=== PATIENT | male | born 1975 | race Caucasian/White ===

== ENCOUNTER 2017-08-25 08:52 | Emergency (ER) | payer OTHER ==
[~2017-08-25] VITALS: Ht 190.5 cm; Wt 140.6 kg
[~2017-08-25 08:52] MED LIST: BACTRIM DS 8001 TA1 PO; KEFLEX 500MG.500 MG PO; NOMEDS
--- OUTSIDE RECORDS SUMMARY | 2017-08-25 09:00 | External Medical Summary Rpt | CCD ---
Author Author , JENA BELLA Address Unknown Phone [email or web address] Purpose Continuity of Care Document - through 2016 Problems Code Diagnosis DOS Provider Status L03.90 CELLULITIS, UNSPECIFIED
--- OUTSIDE RECORDS SUMMARY | 2017-08-25 09:00 | External Medical Summary Rpt | CCD ---
Author Author , JENA BELLA Address Unknown Phone [email or web address] Purpose Continuity of Care Document - through 2016 Problems Code Diagnosis DOS Provider Status L03.90 CELLULITIS, UNSPECIFIED
--- OUTSIDE RECORDS SUMMARY | 2017-08-25 09:01 | External Medical Summary Rpt | CCD ---
Author Author [employer] Organization [employer] Address Unknown Phone Unavailable Purpose Continuity of Care Document - through 2016
--- OUTSIDE RECORDS SUMMARY | 2017-08-25 09:01 | External Medical Summary Rpt | CCD ---
Demographics Preferred Language Portuguese Marital Status Unknown Congregational Affiliation Unknown Race Unknown Ethnic Group Unknown Author Author , JENA Organization JENA Address Unknown Phone [email or web address] Immunization Name Date Rout CVX Reac Dose Comm Prov Is Faci e tion ent ider Refu lity Give sed n Td 03-0 9 999 Hist H149 No H149 (gilmar 6-19 ori lt), 97 al Info adso rmat rbed ion - Sour ce Unsp ecif ied
--- OUTSIDE RECORDS SUMMARY | 2017-08-25 09:01 | External Medical Summary Rpt | CCD ---
Demographics Preferred Language [place] Marital Status Unknown Zoroastrianism Affiliation Unknown Race Unknown Ethnic Group Unknown Author Author , JENA Organization JENA Address Unknown Phone [email or web address] Immunization Name Date Rout CVX Reac Dose Comm Prov Is Faci e tion ent ider Refu lity Give sed n Td 03-0 9 999 Hist H149 No H149 (gilmar 6-19 ori lt), 97 al Info adso rmat rbed ion - Sour ce Unsp ecif ied
--- NOTE | 2017-08-25 09:32 | Urgent Treatment Center Report ---
History of Present Issue Date/Time Seen by Provider 08/25/17 0910 Visit Reason Pt arrived:Walked Presenting Problem:PT REPORTS PAIN ACROSS LOWER ABD THAT IS SHARP STABBING IN NATURE BUT HAS CONSTANT "SORENESS" FEELING X2 DAYS, PT ALSO REPORTS FEVER. Location if Accident: Onset of symptoms date/time:08/23/17/ or onset unknown for:MEDICAL HX UNKNOWN Have you (or family members/close friends) recently traveled outside the [place]? N If Yes, where/when: Have you had exposure to infectious disease within the past month? TB? Other? Specify: c/o abdominal pain since Monday Evening. Started sharp, intermittent initially but since Monday morning, remains sharp but now constant. No increase in intensity since Monday. Fever 100-101 since Monday however, woke Monday w/ "a cold" similiar to and kids so isn't sure if fever related to abdomen or not. No one else at home w/ GI symptoms. Denies N/V/D. Normal appetite. No change in pain w/ eating. Denies change stool. No urinary symptoms. Ibuprofen "eases" the pain. Pain currently 7-05/11. Hx of diverticulosis. Called PCP but no available appt until Monday early afternoon. Source patient Exam Limitations no limitations ALLERGIES Coded Allergies: No Known Allergies (05/07/16) Home Medications Active Scripts CEPHALEXIN (Keflex 500MG Capsule) 500 MG PO Q8H #30 CAP Prov: 05/07/16 Reported Medications SULFAMETHOXAZOLE W/TRIMETHOPRI (Bactrim Ds Tab) 1 TAB PO BID History Medical History General CAD? No Angina: No [place]: No Hypertension? No Hyperlipidemia? No CHF? No DVT? No PE? No COPD? No Asthma? No Anemia? No GERD? No Gastric ulcers? No GI Bleed? No Hernia? No Thyroid Problems? No Hypothyroidism? No CVA? No Seizures? No Diabetes? No Renal Insuffiency? No UTI? No Stones? No BPH? No GB Disease: No Nephritic Syndrome? No Asplenia? No Hepatitis? No Sickle Cell Disease? No Arthritis? No Migraines? No Cataracts? No Glaucoma? No MRSA? No HIV? No TB? No Anxiety? No Depression? No Cancer? No More? No Immunization HX DT/Tetanus Unknown Surgical Hx Previous Surgery?Y FOOT SURGERY Social History Smoking Hx Smoker: Never Smoker Tobacco: No Alcohol Alcohol: No Review of Systems All Other Systems Reviewed and Negative Constitutional see HPI, denies chills, denies diaphoresis Eyes denies drainage ENT see HPI, nose discharge, nose congestion. denies: ear pain, throat pain. Respiratory denies cough, denies shortness of breath Cardiovascular denies chest pain Gastrointestinal see HPI Genitourinary see HPI. denies: discharge, dysuria, frequency, hesitancy, hematuria. Musculoskeletal denies back pain Skin denies rash Psychiatric/Neurological denies headache Physical Exam Vital Signs Vital Signs Date Time Temp Pulse Resp B/P Pulse O2 O2 Flow FiO2 Ox Delivery Rate 08/25 0920 99.1 87 18 135/83 98 General Appearance normal appearance, no apparent distress Eye Exam - bilateral eye normal exam Ear, Nose, Throat normal ENT inspection (x/ mild nasal congestion) Neck non-tender, supple Respiratory Status No: respiratory distress, productive cough, non productive cough. Lung Sounds anterior: lungs clear. posterior: lungs clear. bilateral: lungs clear. Cardiovascular regular rate/rhythm, no peripheral edema, no murmur Gastrointestinal soft, no organomegaly, no pulsatile mass, abnormal bowel sounds (hypoactive), no guarding, no rebound, tenderness (hilario lower quadrants) Back no CVA tenderness Neurologic alert, oriented x 3 Skin normal color, warm/dry Medical Decision Making LABS/Meds/Orders Pt receiving controlled substance in ED? No Progress [facility] Progress Notes Date 08/25/17 Time 09 Comment Discussed possible differentials with patient, [facility] guidelines and further workup necessary. Pt agreeable to transfer to ER. 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 Pt assisted to ER room 10 by Fide. Departure Departure Time of Disposition 917 Disposition Still a Patient Clinical Impression Primary Impression: Abdominal pain, bilateral lower quadrant Condition STABLE at 0931
--- NOTE | 2017-08-25 09:32 | Urgent Treatment Center Report ---
History of Present Issue Date/Time Seen by Provider 08/25/17 0910 Visit Reason Pt arrived:Walked Presenting Problem:PT REPORTS PAIN ACROSS LOWER ABD THAT IS SHARP STABBING IN NATURE BUT HAS CONSTANT "SORENESS" FEELING X2 DAYS, PT ALSO REPORTS FEVER. Location if Accident: Onset of symptoms date/time:08/23/17/ or onset unknown for:MEDICAL HX UNKNOWN Have you (or family members/close friends) recently traveled outside the [place]? N If Yes, where/when: Have you had exposure to infectious disease within the past month? TB? Other? Specify: c/o abdominal pain since Monday Evening. Started sharp, intermittent initially but since Monday morning, remains sharp but now constant. No increase in intensity since Monday. Fever 100-101 since Monday however, woke Monday w/ "a cold" similiar to and kids so isn't sure if fever related to abdomen or not. No one else at home w/ GI symptoms. Denies N/V/D. Normal appetite. No change in pain w/ eating. Denies change stool. No urinary symptoms. Ibuprofen "eases" the pain. Pain currently 7-05/11. Hx of diverticulosis. Called PCP but no available appt until Monday early afternoon. Source patient Exam Limitations no limitations ALLERGIES Coded Allergies: No Known Allergies (05/07/16) Home Medications Active Scripts CEPHALEXIN (Keflex 500MG Capsule) 500 MG PO Q8H #30 CAP Prov: 05/07/16 Reported Medications SULFAMETHOXAZOLE W/TRIMETHOPRI (Bactrim Ds Tab) 1 TAB PO BID History Medical History General CAD? No Angina: No [place]: No Hypertension? No Hyperlipidemia? No CHF? No DVT? No PE? No COPD? No Asthma? No Anemia? No GERD? No Gastric ulcers? No GI Bleed? No Hernia? No Thyroid Problems? No Hypothyroidism? No CVA? No Seizures? No Diabetes? No Renal Insuffiency? No UTI? No Stones? No BPH? No GB Disease: No Nephritic Syndrome? No Asplenia? No Hepatitis? No Sickle Cell Disease? No Arthritis? No Migraines? No Cataracts? No Glaucoma? No MRSA? No HIV? No TB? No Anxiety? No Depression? No Cancer? No More? No Immunization HX DT/Tetanus Unknown Surgical Hx Previous Surgery?Y FOOT SURGERY Social History Smoking Hx Smoker: Never Smoker Tobacco: No Alcohol Alcohol: No Review of Systems All Other Systems Reviewed and Negative Constitutional see HPI, denies chills, denies diaphoresis Eyes denies drainage ENT see HPI, nose discharge, nose congestion. denies: ear pain, throat pain. Respiratory denies cough, denies shortness of breath Cardiovascular denies chest pain Gastrointestinal see HPI Genitourinary see HPI. denies: discharge, dysuria, frequency, hesitancy, hematuria. Musculoskeletal denies back pain Skin denies rash Psychiatric/Neurological denies headache Physical Exam Vital Signs Vital Signs Date Time Temp Pulse Resp B/P Pulse O2 O2 Flow FiO2 Ox Delivery Rate 08/25 0920 99.1 87 18 135/83 98 General Appearance normal appearance, no apparent distress Eye Exam - bilateral eye normal exam Ear, Nose, Throat normal ENT inspection (x/ mild nasal congestion) Neck non-tender, supple Respiratory Status No: respiratory distress, productive cough, non productive cough. Lung Sounds anterior: lungs clear. posterior: lungs clear. bilateral: lungs clear. Cardiovascular regular rate/rhythm, no peripheral edema, no murmur Gastrointestinal soft, no organomegaly, no pulsatile mass, abnormal bowel sounds (hypoactive), no guarding, no rebound, tenderness (hilario lower quadrants) Back no CVA tenderness Neurologic alert, oriented x 3 Skin normal color, warm/dry Medical Decision Making LABS/Meds/Orders Pt receiving controlled substance in ED? No Progress [facility] Progress Notes Date 08/25/17 Time 09 Comment Discussed possible differentials with patient, [facility] guidelines and further workup necessary. Pt agreeable to transfer to ER. Report given to Daniella, VACUUM EXTRACTOR OPERATOR. Pt assisted to ER room 10 by Fide. Departure Departure Time of Disposition 917 Disposition Still a Patient Clinical Impression Primary Impression: Abdominal pain, bilateral lower quadrant Condition STABLE at 0931
--- NOTE | 2017-08-25 09:39 | Emergency Room Report ---
See Addendum History of Present Illness Time Seen by MD Hayes Presenting Problem in Triage Pt arrived:Walked Presenting Problem:PT REPORTS PAIN ACROSS LOWER ABD THAT IS SHARP STABBING IN NATURE BUT HAS CONSTANT "SORENESS" FEELING X2 DAYS, PT ALSO REPORTS FEVER. 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 Y Clinical Suspician of Infection? N Mental Status: 1 - Regular (Normal Baseline) Sepsis Risk:Low Sepsis Risk Have you (or family members/close friends) recently traveled outside the [place]? N If Yes, where/when: Have you had exposure to infectious disease within the past month? TB? Other? Specify: She complains of bilateral lower quadrant abdominal pain he states it hurts worse RIGHT in the center denies any f chills or nausea or vomiting or diarrhea, has had feverishness does have history of diverticulitis in the past. no Radiation of pain to the back. Moderate in severity he rates his soreness type feeling and sometimes sharp. Comment 1038 radiologist has called back with diverticulitis, no abscess no perforation. labs pending. invanz ordered. ALLERGIES Coded Allergies: No Known Allergies (05/07/16) History Medical History General CAD? No Angina: No NV: No Hypertension? No Hyperlipidemia? No CHF? No DVT? No PE? No COPD? No Asthma? No Anemia? No GERD? No Gastric ulcers? No GI Bleed? No Hernia? No Thyroid Problems? No Hypothyroidism? No CVA? No Seizures? No Diabetes? No Renal Insuffiency? No End Stage Renal Disease? No UTI? No Stones? No BPH? No GB Disease: No Nephritic Syndrome? No Asplenia? No Hepatitis? No Sickle Cell Disease? No Arthritis? No Migraines? No Cataracts? No Glaucoma? No MRSA? No HIV? No TB? No Anxiety? No Depression? No Cancer? No More? Yes Additional hx: HX OF DIVERTICULOSIS Immunization Hx DT/Tetanus Unknown Surgical Hx Previous Surgery?Y FOOT SURGERY Social History Smoking Hx Smoker: Never Smoker Tobacco: No Alcohol Alcohol: No Review of Systems All Other Systems Reviewed and Negative Physical Exam Vital Signs Vital Signs Date Time Temp Pulse Resp B/P Pulse O2 O2 Flow FiO2 Ox Delivery Rate 08/25 1030 85 16 126/88 100 08/25 1029 16 08/25 0920 99.1 87 18 135/83 98 General Appearance: Nontoxic Head: Normocephalic, without obvious abnormality, atraumatic. Eyes: conjunctiva/corneas clear ENT: Mucous membranes moist. Neck: No jugular venous distention. Cardiac: regular rate and rhythm Lungs: Clear to auscultation bilaterally Abdomen: Patient with bilateral lower quadrant tenderness, Nondistended, positive bowel sounds, no rebound : No CVA tenderness Extremities: no edema Musculoskeletal: No chest wall tenderness Skin: No rashes or lesions to exposed skin. Neurologic: Alert. No gross focal deficits Psychiatric: Normal affect (Venus DEAL, [place]) General Appearance normal appearance Respiratory Status No: respiratory distress. Cardiovascular normal exam Neurologic alert Medical Decision Making LABS/Meds/Orders Pt receiving controlled substance in ED? Yes Results/Orders Laboratory Tests 08/25/17 0940: Sodium 144, Potassium 4.2, Chloride 109 H, Carbon Dioxide 27, BUN 11, Creatinine 0.9, Estimated Creat Clear 215 H, Estimated GFR (MDRD) 93, Glucose 100, Calcium 8.7, Total Bilirubin 0.5, AST 13 L, ALT 27, Alkaline Phosphatase 59, Total Protein 7.2, Albumin 3.4, Globulin 3.8 H, Albumin/Globulin Ratio 0.9 L, Amylase 32, Lipase 67 L, WBC 13.9 H, RBC 4.83, Hgb 14.1, Hct 42.5, MCV 88.1 , RDW 12.6, Plt Count 241, MPV 8.1, Gran % 72.0, Gran # 10.0 H, Lymphocytes % 18.7, Monocytes % 6.8, Eosinophils % 1.9, Basophils % 0.5, Lymphocytes # 2.6, Monocytes # 1.0, Eosinophils # 0.3, Basophils # 0.1, PUBS MCHC 33.1, MCH 29.1 Current Medication Orders Sig/Jeanine Start time Last Medication Dose Route Stop Time Status Admin Ertapenem 0 .STK-MED ONE 08/25 1033 DC .ROUTE Sodium Chloride 50 ML .STK-MED ONE 08/25 1033 DC IV Ertapenem 1 GM ONCE ONE 08/25 1030 DC 08/25 Sodium Chloride 50 ML IV 08/25 1059 1035 Ketorolac 15 MG ONCE ONE 08/25 1030 DC 08/25 Tromethamine IV 08/25 1031 1029 Ketorolac 0 .STK-MED ONE 08/25 1022 DC Tromethamine .ROUTE Ondansetron HCl 0 .STK-MED ONE 08/25 1017 DC .ROUTE Sodium Chloride 1,000 ML .STK-MED ONE 08/25 1017 DC IV Morphine Sulfate 4 MG ONCE ONE 08/25 0945 CAN IV 08/25 0946 Ondansetron HCl 4 MG ONCE ONE 08/25 0945 DC 08/25 IV 08/25 0946 1017 Sodium Chloride 1,000 ML .Q1H 08/25 0945 DC 08/25 IV 08/25 1131 1017 Sodium Chloride 10 ML PRN PRN 08/25 945 AC IV 08/26 0931 Sodium Chloride 10 ML PRN PRN 08/25 0945 AC IV 08/26 0931 Orders Procedure Date/time Status DIET-NOTHING BY MOUTH 08/[address] ABD REQUEST 08/25 09 Complete IV SALINE LOCK 08/25 934 Active URINALYSIS/COMPLETE 08/25 0934 Active LIPASE 08/25 0934 Complete COMPLETE METABOLIC PANEL 08/25 0934 Complete CBC WITH AUTO DIFF 08/25 934 Complete AMYLASE 08/25 0934 Complete Departure Departure Disposition Still a Patient Clinical Impression Primary Impression: Diverticulitis Condition STABLE Referrals Geraldo Hercules MD (Family) Patient Instructions DI for Diverticulitis Additional Instructions clear liquid diet for 48 hours. return if pain worsens or any problems. follow up with your doctor for recheck. Discharge Counseling Counseled pt/family regarding diagnosis, test results, medications/RX, home care, follow up needs Prescriptions Current Visit Scripts Metronidazole (Flagyl) 500 MG PO TID #30 TAB Ondansetron (Zofran 4MG Odt) 4 MG PO Q6HP PRN NAUSEA AND VOMITING #10 ODT Tramadol Hcl (Ultram 50MG) 50 MG PO TID #15 TAB Levofloxacin (Levaquin 750mg) 750 MG PO DAILY #10 TAB ED Critical Care Critical Care No Comments [id number] Charlie check number. at 1100
[2017-08-25 09:52] LABS: HEMOGLOBIN 14.1 g/dL (14.1-18.0); LYMPH # 2.6 K/mm3 (0.7-4.5); LYMPH % 18.7 % (10-50)
[2017-08-25] MEDS ORDERED: LEVAQUIN 750 M750 MG PO (10:38)
[2017-08-25] MEDS ORDERED: ULTRAM50 MG PO (10:38)
[2017-08-25] MEDS ORDERED: FLAGYL500 M1 PO (10:38)
[2017-08-25] MEDS ORDERED: ZOFRAN ODT4 MG PO (10:38)
--- NOTE | 2017-08-25 10:39 | RADIOLOGY REPORT PS360 ---
CT ABD PELVIS W/O CONTRAST COMPARISON: CT scan abdomen pelvis 08/15/2012 HISTORY: Left lower quadrant pain, known diverticulosis TECHNIQUE: Multiaxial scans obtained from hemidiaphragms the pelvic floor and were performed without IV or oral contrast. Sagittal coronal reformats were evaluated as well. FINDINGS: Scans of the lower chest show clear lower lung castelan. Liver spleen stomach and gas and gallbladder appear normal. The adrenal glands are normal. The kidneys are normal size and appear normal except for small 7 8-mm nonobstructing calculus lower pole left kidney there is no obstructive uropathy of either kidney. Small bowel appears normal. The appendix is normal. There is moderate scattered stool in the ascending and transverse colon and descending colon. There is diffuse diverticulosis of the lower descending and sigmoid colon and is a focal area of pericolonic fat stranding in the upper sigmoid colon consistent with acute diverticulitis. There is no definite perforation or abscess identified. The urinary bladder and prostate appear normal. IMPRESSION: Focal area of acute diverticulitis upper sigmoid colon and descending sigmoid colon junction, no other significant abnormality noted.
[2017-08-25 11:46] VITALS: BP 115/75
== END 2017-08-25 11:47 | disposition home or self-care (01) ==
LOC: UTC 08:52 → ER 08:57
PROVIDERS: Emergency Medicine
DX: K57.92 Diverticulitis of intestine, part unspecified, without perforation or abscess without bleeding (principal)
CPT/HCPCS: J1335; J2405